=== PATIENT | male | born 1955 | race Caucasian/White ===

== ENCOUNTER 2020-11-16 17:17 | Inpatient (IN) | payer OTHER ==
[2020-11-16 21:12] LABS: BASO % 0.3 % (0-2.0); EOS % 0.4 % (0-4.5); HEMOGLOBIN 14.1 GM/dL (11.7-16.9); LYMPH % 12.8 % (8-40); MCH 29.2 pg (25.7-33.7); MCHC 33.6 g/dl (32.0-35.9); MEAN CELL VOLUME 86.9 fl (80-96); MEAN PLT VOLUME 8.1 fl (7.5-11.1); MONO % 6.8 % (3.8-10.2); NEUT % 79.7 % (42.8-82.8); PLATELET COUNT 282 K/MM3 (134-434); RBC 4.84 M/mm3 (4.00-5.60); RDW 14.8 % (11.9-15.9); WHITE BLOOD COUNT 12.2 K/mm3 (4.0-10.0)
[2020-11-16 21:31] LABS: POTASSIUM 4.2 mmol/L (3.5-5.1)
[2020-11-16 21:33] LABS: ALBUMIN 4.1 g/dl (3.4-5.0); BLOOD UREA NITROGEN 25.3 mg/dL (7-18); CALCIUM 9.4 mg/dL (8.5-10.1)
[2020-11-16 21:37] LABS: CREATININE 1.4 mg/dL (0.55-1.3)
[2020-11-16 21:38] LABS: BILIRUBIN,TOTAL 0.8 mg/dL (0.2-1); TOT PROT 7.8 g/dl (6.4-8.2)
[2020-11-16] MEDS ORDERED: SODIUM CHLORIDE 500 ML IV STA (22:55)
[2020-11-17] MEDS ORDERED: ACETAMINOPHEN 325 MG TABLET (FP) PO PRN (03:21)
[2020-11-17 07:17] LABS: HEMATOCRIT 38.1 % (35.4-49); MCH 29.7 pg (25.7-33.7); MCHC 34.1 g/dl (32.0-35.9); MEAN CELL VOLUME 86.9 fl (80-96); MEAN PLT VOLUME 7.9 fl (7.5-11.1); PLATELET COUNT 240 K/MM3 (134-434); RBC 4.38 M/mm3 (4.00-5.60); RDW 14.7 % (11.9-15.9); WHITE BLOOD COUNT 9.1 K/mm3 (4.0-10.0)
[2020-11-17 07:42] LABS: POTASSIUM 4.1 mmol/L (3.5-5.1)
[2020-11-17] MEDS ORDERED: HEPARIN NA (PORCINE) 5,000 UNITS/ML 1ML VIAL ONE ×2 (07:42→12:56)
[2020-11-17 07:46] LABS: CALCIUM 8.3 mg/dL (8.5-10.1)
[2020-11-17 07:47] LABS: ALBUMIN 3.5 g/dl (3.4-5.0); BLOOD UREA NITROGEN 28.5 mg/dL (7-18)
[2020-11-17 07:50] LABS: CREATININE 1.3 mg/dL (0.55-1.3); PHOSPHOROUS 4.2 mg/dL (2.5-4.9)
[2020-11-17] MEDS: HEPARIN NA (PORCINE) 5,000 UNITS/ML 1ML VIAL SQ SCH ×3 (07:50→21:27)
[2020-11-17 07:52] LABS: BILIRUBIN,TOTAL 0.7 mg/dL (0.2-1); TOT PROT 6.7 g/dl (6.4-8.2)
[2020-11-17 08:06] LABS: EPI CELLS 10 /uL (0-25.1); HYALINE CASTS 6 /uL (0-3.1); URINE APPEARANCE CLOUDY; URINE BACTERIA 12 /uL (0-1359); URINE BILIRUBIN NEGATIVE (NEGATIVE); URINE COLOR YELLOW; URINE GLUCOSE (UA) NEGATIVE (NEGATIVE); URINE KETONE TRACE (NEGATIVE); URINE LEUK ESTERASE NEGATIVE (NEGATIVE); URINE NITRITE NEGATIVE (NEGATIVE); URINE PROTEIN 1+ (NEGATIVE); URINE RBC 12 /uL (0-23.9); URINE UROBILINOGEN 0.2 mg/dL (0.2-1.0); URINE WBC 9 /uL (0-25.8)
[2020-11-17] MEDS: DOCUSATE SODIUM 100 MG CAPSULE (FP) PO SCH (14:27)
[2020-11-17] MEDS: POLYETHYLENE GLYCOL 3350 119 GM BTL PO SCH (14:27)
[2020-11-17] MEDS: SENNOSIDES 8.6MG TABLET (FP) PO SCH (21:27)
[2020-11-18] MEDS: HEPARIN NA (PORCINE) 5,000 UNITS/ML 1ML VIAL SQ SCH ×3 (05:57→21:43)
[2020-11-18] MEDS: DOCUSATE SODIUM 100 MG CAPSULE (FP) PO SCH (09:40)
[2020-11-18] MEDS: POLYETHYLENE GLYCOL 3350 119 GM BTL PO SCH (09:40)
[2020-11-18] MEDS: amLODIPine BESYLATE 5 MG TABLET (FP) PO SCH (15:20)
[2020-11-18] MEDS: SENNOSIDES 8.6MG TABLET (FP) PO SCH (21:43)
[2020-11-19] MEDS: HEPARIN NA (PORCINE) 5,000 UNITS/ML 1ML VIAL SQ SCH ×3 (06:02→21:22)
[2020-11-19] MEDS: POLYETHYLENE GLYCOL 3350 119 GM BTL PO SCH (09:31)
[2020-11-19] MEDS: TAMSULOSIN HCL 0.4 MG CAP PO SCH (09:33)
[2020-11-19] MEDS: amLODIPine BESYLATE 5 MG TABLET (FP) PO SCH (09:33)
[2020-11-19] MEDS: DOCUSATE SODIUM 100 MG CAPSULE (FP) PO SCH (09:33)
[2020-11-19] MEDS: FUROSEMIDE 20 MG TABLET (FP) PO SCH (15:48)
[2020-11-19] MEDS: SENNOSIDES 8.6MG TABLET (FP) PO SCH (21:22)
[2020-11-20] MEDS: HEPARIN NA (PORCINE) 5,000 UNITS/ML 1ML VIAL SQ SCH ×3 (06:37→21:57)
[2020-11-20] MEDS: amLODIPine BESYLATE 10 MG TABLET (FP) PO SCH (09:14)
[2020-11-20] MEDS: FUROSEMIDE 20 MG TABLET (FP) PO SCH (09:14)
[2020-11-20] MEDS: TAMSULOSIN HCL 0.4 MG CAP PO SCH (09:15)
[2020-11-20] MEDS: DOCUSATE SODIUM 100 MG CAPSULE (FP) PO SCH (09:15)
[2020-11-20 09:19] LABS: HEMOGLOBIN 13.1 GM/dL (11.7-16.9); MCH 29.4 pg (25.7-33.7); MCHC 33.6 g/dl (32.0-35.9); MEAN CELL VOLUME 87.6 fl (80-96); MEAN PLT VOLUME 7.9 fl (7.5-11.1); PLATELET COUNT 196 K/MM3 (134-434); RBC 4.45 M/mm3 (4.00-5.60); RDW 14.7 % (11.9-15.9); WHITE BLOOD COUNT 7.8 K/mm3 (4.0-10.0)
[2020-11-20 09:45] LABS: POTASSIUM 4.1 mmol/L (3.5-5.1)
[2020-11-20] MEDS ORDERED: amLODIPine BESYLATE 10 MG TABLET (FP) PO SCH (10:00)
[2020-11-20 10:02] LABS: CALCIUM 8.5 mg/dL (8.5-10.1)
[2020-11-20 10:03] LABS: BLOOD UREA NITROGEN 19.1 mg/dL (7-18)
[2020-11-20 10:06] LABS: CREATININE 1.3 mg/dL (0.55-1.3)
[2020-11-20] MEDS: POLYETHYLENE GLYCOL 3350 119 GM BTL PO SCH (10:06)
[2020-11-20] MEDS ORDERED: cefTRIAXone SODIUM 1 GM VIAL ONE (14:56)
[2020-11-20] MEDS ORDERED: DEXTROSE 5%-WATER - 50 ML IVPB ONE (14:56)
[2020-11-20] MEDS: CEFTRIAXONE 1 GM in DEXTROSE 5%-WATER - 50 ML IVPB SCH (15:30)
[2020-11-20] MEDS: SENNOSIDES 8.6MG TABLET (FP) PO SCH (21:57)
[2020-11-21] MEDS: HEPARIN NA (PORCINE) 5,000 UNITS/ML 1ML VIAL SQ SCH ×3 (06:42→21:56)
[2020-11-21] MEDS ORDERED: cefTRIAXone SODIUM 1 GM VIAL ONE (09:05)
[2020-11-21] MEDS ORDERED: DEXTROSE 5%-WATER - 50 ML IVPB ONE (09:05)
[2020-11-21] MEDS: DOCUSATE SODIUM 100 MG CAPSULE (FP) PO SCH (09:07)
[2020-11-21] MEDS: amLODIPine BESYLATE 10 MG TABLET (FP) PO SCH (09:07)
[2020-11-21] MEDS: TAMSULOSIN HCL 0.4 MG CAP PO SCH (09:07)
[2020-11-21] MEDS: FUROSEMIDE 20 MG TABLET (FP) PO SCH (09:07)
[2020-11-21] MEDS: CEFTRIAXONE 1 GM in DEXTROSE 5%-WATER - 50 ML IVPB SCH (09:07)
[2020-11-21] MEDS: POLYETHYLENE GLYCOL 3350 119 GM BTL PO SCH (09:07)
[2020-11-21 09:13] LABS: BASO % 0.8 % (0-2.0); EOS % 4.9 % (0-4.5); HEMATOCRIT 40.5 % (35.4-49); HEMOGLOBIN 13.9 GM/dL (11.7-16.9); MCH 29.6 pg (25.7-33.7); MCHC 34.2 g/dl (32.0-35.9); MEAN CELL VOLUME 86.5 fl (80-96); MEAN PLT VOLUME 7.9 fl (7.5-11.1); MONO % 6.1 % (3.8-10.2); NEUT % 70.2 % (42.8-82.8); PLATELET COUNT 212 K/MM3 (134-434); RBC 4.68 M/mm3 (4.00-5.60); RDW 14.6 % (11.9-15.9); WHITE BLOOD COUNT 7.8 K/mm3 (4.0-10.0)
[2020-11-21 09:29] LABS: POTASSIUM 4.4 mmol/L (3.5-5.1)
[2020-11-21 09:56] LABS: BLOOD UREA NITROGEN 19.3 mg/dL (7-18); CALCIUM 8.9 mg/dL (8.5-10.1); PHOSPHOROUS 3.5 mg/dL (2.5-4.9)
[2020-11-21 09:57] LABS: CREATININE 1.2 mg/dL (0.55-1.3); MAGNESIUM 2.2 mg/dL (1.8-2.4)
[2020-11-21] MEDS: SENNOSIDES 8.6MG TABLET (FP) PO SCH (21:55)
[2020-11-22] MEDS: HEPARIN NA (PORCINE) 5,000 UNITS/ML 1ML VIAL SQ SCH ×4 (06:20→21:39)
[2020-11-22] MEDS ORDERED: DEXTROSE 5%-WATER - 50 ML IVPB ONE (08:58)
[2020-11-22] MEDS ORDERED: cefTRIAXone SODIUM 1 GM VIAL ONE (08:58)
[2020-11-22] MEDS: FUROSEMIDE 20 MG TABLET (FP) PO SCH (09:05)
[2020-11-22] MEDS: CEFTRIAXONE 1 GM in DEXTROSE 5%-WATER - 50 ML IVPB SCH (09:05)
[2020-11-22] MEDS: amLODIPine BESYLATE 10 MG TABLET (FP) PO SCH (09:05)
[2020-11-22] MEDS: TAMSULOSIN HCL 0.4 MG CAP PO SCH (09:05)
[2020-11-22] MEDS: DOCUSATE SODIUM 100 MG CAPSULE (FP) PO SCH (09:05)
[2020-11-22] MEDS: POLYETHYLENE GLYCOL 3350 119 GM BTL PO SCH (09:05)
[2020-11-22 09:52] LABS: CALCIUM 9.2 mg/dL (8.5-10.1); POTASSIUM 4.5 mmol/L (3.5-5.1)
[2020-11-22 09:54] LABS: BLOOD UREA NITROGEN 19.4 mg/dL (7-18)
[2020-11-22 09:57] LABS: CREATININE 1.3 mg/dL (0.55-1.3); PHOSPHOROUS 3.2 mg/dL (2.5-4.9)
[2020-11-22 10:02] LABS: MAGNESIUM 2.2 mg/dL (1.8-2.4)
[2020-11-22 10:54] LABS: HEMOGLOBIN 13.9 GM/dL (11.7-16.9); MCH 29.7 pg (25.7-33.7); MCHC 33.9 g/dl (32.0-35.9); MEAN CELL VOLUME 87.5 fl (80-96); MEAN PLT VOLUME 8.6 fl (7.5-11.1); PLATELET COUNT 222 K/MM3 (134-434); RBC 4.68 M/mm3 (4.00-5.60); RDW 14.6 % (11.9-15.9); WHITE BLOOD COUNT 7.6 K/mm3 (4.0-10.0)
[2020-11-22] MEDS: SENNOSIDES 8.6MG TABLET (FP) PO SCH (21:39)
[2020-11-23] MEDS: HEPARIN NA (PORCINE) 5,000 UNITS/ML 1ML VIAL SQ SCH ×3 (05:32→22:56)
[2020-11-23 09:33] LABS: HEMATOCRIT 40.1 % (35.4-49); HEMOGLOBIN 13.5 GM/dL (11.7-16.9); MCH 29.4 pg (25.7-33.7); MCHC 33.7 g/dl (32.0-35.9); MEAN CELL VOLUME 87.2 fl (80-96); MEAN PLT VOLUME 8.1 fl (7.5-11.1); PLATELET COUNT 209 K/MM3 (134-434); RDW 14.7 % (11.9-15.9); WHITE BLOOD COUNT 7.5 K/mm3 (4.0-10.0)
[2020-11-23] MEDS: DOCUSATE SODIUM 100 MG CAPSULE (FP) PO SCH (09:37)
[2020-11-23] MEDS: FUROSEMIDE 20 MG TABLET (FP) PO SCH (09:37)
[2020-11-23] MEDS: CEPHALEXIN MONOHYDRATE 500 MG CAPSULE (UD) PO SCH ×2 (09:37→22:55)
[2020-11-23] MEDS: TAMSULOSIN HCL 0.4 MG CAP PO SCH (09:37)
[2020-11-23] MEDS: amLODIPine BESYLATE 10 MG TABLET (FP) PO SCH (09:37)
[2020-11-23] MEDS: POLYETHYLENE GLYCOL 3350 119 GM BTL PO SCH (09:38)
[2020-11-23 09:52] LABS: CALCIUM 8.7 mg/dL (8.5-10.1); MAGNESIUM 2.2 mg/dL (1.8-2.4)
[2020-11-23 09:54] LABS: CREATININE 1.3 mg/dL (0.55-1.3)
[2020-11-23 09:57] LABS: BLOOD UREA NITROGEN 23.6 mg/dL (7-18)
[2020-11-23 10:00] LABS: PHOSPHOROUS 3.1 mg/dL (2.5-4.9)
[2020-11-23 13:18] VITALS: BMI 29.5
[2020-11-23] MEDS: SENNOSIDES 8.6MG TABLET (FP) PO SCH (22:56)
[2020-11-24] MEDS: HEPARIN NA (PORCINE) 5,000 UNITS/ML 1ML VIAL SQ SCH ×3 (06:21→22:52)
[2020-11-24 08:46] LABS: HEMATOCRIT 38.8 % (35.4-49); HEMOGLOBIN 13.1 GM/dL (11.7-16.9); MCH 29.5 pg (25.7-33.7); MCHC 33.8 g/dl (32.0-35.9); MEAN CELL VOLUME 87.1 fl (80-96); MEAN PLT VOLUME 8.2 fl (7.5-11.1); PLATELET COUNT 183 K/MM3 (134-434); RBC 4.45 M/mm3 (4.00-5.60); RDW 14.5 % (11.9-15.9); WHITE BLOOD COUNT 8.1 K/mm3 (4.0-10.0)
[2020-11-24 09:05] LABS: POTASSIUM 4.2 mmol/L (3.5-5.1)
[2020-11-24 09:26] LABS: CALCIUM 8.6 mg/dL (8.5-10.1)
[2020-11-24 09:28] LABS: BLOOD UREA NITROGEN 22.9 mg/dL (7-18); MAGNESIUM 2.1 mg/dL (1.8-2.4)
[2020-11-24 09:30] LABS: CREATININE 1.2 mg/dL (0.55-1.3); PHOSPHOROUS 3.5 mg/dL (2.5-4.9)
[2020-11-24] MEDS ORDERED: PT OWN MED DRAWER 7, Y5N ONE (09:37)
[2020-11-24] MEDS: TAMSULOSIN HCL 0.4 MG CAP PO SCH (09:39)
[2020-11-24] MEDS: DOCUSATE SODIUM 100 MG CAPSULE (FP) PO SCH (09:40)
[2020-11-24] MEDS: amLODIPine BESYLATE 10 MG TABLET (FP) PO SCH (09:41)
[2020-11-24] MEDS: CEPHALEXIN MONOHYDRATE 500 MG CAPSULE (UD) PO SCH ×2 (09:41→22:52)
[2020-11-24] MEDS: MULTIVIT-MINERALS ORAL LIQUID PO SCH (09:41)
[2020-11-24] MEDS: FUROSEMIDE 20 MG TABLET (FP) PO SCH (09:41)
[2020-11-24] MEDS: POLYETHYLENE GLYCOL 3350 119 GM BTL PO SCH (09:43)
[2020-11-24] MEDS: SENNOSIDES 8.6MG TABLET (FP) PO SCH (22:52)
[2020-11-25] MEDS: HEPARIN NA (PORCINE) 5,000 UNITS/ML 1ML VIAL SQ SCH ×3 (06:17→22:50)
[2020-11-25] MEDS: POLYETHYLENE GLYCOL 3350 119 GM BTL PO SCH (10:25)
[2020-11-25] MEDS: amLODIPine BESYLATE 10 MG TABLET (FP) PO SCH (10:27)
[2020-11-25] MEDS: DOCUSATE SODIUM 100 MG CAPSULE (FP) PO SCH (10:28)
[2020-11-25] MEDS: FUROSEMIDE 20 MG TABLET (FP) PO SCH (10:28)
[2020-11-25] MEDS: TAMSULOSIN HCL 0.4 MG CAP PO SCH (10:28)
[2020-11-25] MEDS ORDERED: INSULIN (NOVOLOG) ASPART 100 UNITS/ML 10ML VIAL ONE (10:29)
[2020-11-25] MEDS: MULTIVIT-MINERALS ORAL LIQUID PO SCH (10:30)
[2020-11-25] MEDS ORDERED: PT OWN MED DRAWER 7, Y5N ONE (10:30)
[2020-11-25] MEDS: SENNOSIDES 8.6MG TABLET (FP) PO SCH (22:50)
[2020-11-26] MEDS: HEPARIN NA (PORCINE) 5,000 UNITS/ML 1ML VIAL SQ SCH ×3 (05:40→21:58)
[2020-11-26] MEDS: amLODIPine BESYLATE 10 MG TABLET (FP) PO SCH (10:04)
[2020-11-26] MEDS: MULTIVIT-MINERALS ORAL LIQUID PO SCH (10:04)
[2020-11-26] MEDS: DOCUSATE SODIUM 100 MG CAPSULE (FP) PO SCH (10:04)
[2020-11-26] MEDS: TAMSULOSIN HCL 0.4 MG CAP PO SCH (10:04)
[2020-11-26] MEDS: FUROSEMIDE 20 MG TABLET (FP) PO SCH (10:04)
[2020-11-26] MEDS: POLYETHYLENE GLYCOL 3350 119 GM BTL PO SCH (10:07)
[2020-11-26] MEDS: SENNOSIDES 8.6MG TABLET (FP) PO SCH (21:58)
[2020-11-27] MEDS: HEPARIN NA (PORCINE) 5,000 UNITS/ML 1ML VIAL SQ SCH ×3 (06:13→21:53)
[2020-11-27] MEDS: TAMSULOSIN HCL 0.4 MG CAP PO SCH (07:45)
[2020-11-27] MEDS ORDERED: PT OWN MED DRAWER 7, Y5N ONE (10:07)
[2020-11-27] MEDS: MULTIVIT-MINERALS ORAL LIQUID PO SCH (10:14)
[2020-11-27] MEDS: amLODIPine BESYLATE 10 MG TABLET (FP) PO SCH (10:14)
[2020-11-27] MEDS: FUROSEMIDE 20 MG TABLET (FP) PO SCH (10:14)
[2020-11-27] MEDS: DOCUSATE SODIUM 100 MG CAPSULE (FP) PO SCH (10:14)
[2020-11-27] MEDS: POLYETHYLENE GLYCOL 3350 119 GM BTL PO SCH (10:15)
[2020-11-27 21:22] VITALS: TEMP 98.7
[2020-11-27] MEDS: SENNOSIDES 8.6MG TABLET (FP) PO SCH (21:54)
[2020-11-28] MEDS: HEPARIN NA (PORCINE) 5,000 UNITS/ML 1ML VIAL SQ SCH (06:19)
[2020-11-28] MEDS: TAMSULOSIN HCL 0.4 MG CAP PO SCH (08:44)
[2020-11-28] MEDS ORDERED: PT OWN MED DRAWER 7, Y5N ONE (09:22)
[2020-11-28] MEDS: DOCUSATE SODIUM 100 MG CAPSULE (FP) PO SCH (10:02)
[2020-11-28] MEDS: FUROSEMIDE 20 MG TABLET (FP) PO SCH (10:02)
[2020-11-28] MEDS: MULTIVIT-MINERALS ORAL LIQUID PO SCH (10:02)
[2020-11-28] MEDS: POLYETHYLENE GLYCOL 3350 119 GM BTL PO SCH (10:03)
[2020-11-28] MEDS: amLODIPine BESYLATE 10 MG TABLET (FP) PO SCH (10:03)
[2020-11-28 12:39] VITALS: BP 147/96; PULSE 87
== END 2020-11-28 13:02 | disposition home or self-care (01) | DRG 556 ==
LOC: JER 17:17 → JERBED 20:25 → J6S 11-17 15:26
PROVIDERS: ADMIT Hospitalist; ATTEND Student in an Organized Health Care Education/Training Program
DX: R26.2 Difficulty in walking, not elsewhere classified (principal); N17.9 Acute kidney failure, unspecified; L03.113 Cellulitis of right upper limb; N40.0 Benign prostatic hyperplasia without lower urinary tract symptoms; R26.81 Unsteadiness on feet; I12.9 Hypertensive chronic kidney disease with stage 1 through stage 4 chronic kidney disease, or unspecified chronic kidney disease; N18.9 Chronic kidney disease, unspecified; D72.829 Elevated white blood cell count, unspecified; I80.8 Phlebitis and thrombophlebitis of other sites; I87.2 Venous insufficiency (chronic) (peripheral); E78.5 Hyperlipidemia, unspecified
CPT/HCPCS: 36415; 70450-TC; 71045-TC-FY; 73502-TC-LT-FY; 73552-TC-LT-FY; 73560-TC-LT-FY; 80048; 80053; 81003; 82565; 83735; 84100; 84156; 84300; 85025; 85027; 85651; 86140; 87040; 93005; 93010; 93971; 93971-TC; 97116-GP; 97162-GP; 99285-25; C9803; J1644; U0003

== ENCOUNTER 2024-09-22 12:35 | Inpatient (IN) | payer OTHER ==
[2024-09-22 13:25] VITALS: BMI 36.9
[2024-09-22] MEDS ORDERED: VANCOMYCIN 1 GRAM (PRE-DOCKED) 1,000 MG/250 ML BAG IVPB ONE (14:46)
[2024-09-22] MEDS ORDERED: ACETAMINOPHEN INJECTION 100 ML ONE (14:46)
[2024-09-22 15:19] LABS: BASO % 0.5 % (0-2.0); EOS % 2.2 % (0-4.5); HEMATOCRIT 44.4 % (35.4-49); HEMOGLOBIN 15.1 GM/dL (11.7-16.9); LYMPH % 19.4 % (8-40); MCH 29.8 pg (25.7-33.7); MCHC 34.1 g/dl (32.0-35.9); MEAN CELL VOLUME 87.4 fl (80-96); MEAN PLT VOLUME 7.5 fl (7.5-11.1); MONO % 7.4 % (3.8-10.2); NEUT % 70.5 % (42.8-82.8); PLATELET COUNT 175 10^3/uL (134-434); RBC 5.08 M/mm3 (4.00-5.60); RDW 14.3 % (11.9-15.9); WHITE BLOOD COUNT 8.7 K/mm3 (4.0-10.0)
[2024-09-22 15:46] LABS: POTASSIUM 4.2 mmol/L (3.5-5.1)
[2024-09-22 15:48] LABS: ALBUMIN 3.7 g/dl (3.4-5.0); BLOOD UREA NITROGEN 16.4 mg/dL (7-18)
[2024-09-22 15:52] LABS: CREATININE 1.2 mg/dL (0.55-1.3)
[2024-09-22 15:53] LABS: BILIRUBIN,TOTAL 0.9 mg/dL (0.2-1); TOT PROT 7.3 g/dl (6.4-8.2)
[2024-09-22 17:02] LABS: HIV INTERPRETATION NEGATIVE (NEGATIVE)
[2024-09-22] MEDS: VANCOMYCIN 1,000 MG in DEXTROSE 5%-WATER - 250 ML IVPB ONE ×2 (18:11→19:17)
[2024-09-22] MEDS: ACETAMINOPHEN 1000 MG/100 ML BAG IVPB ONE (18:11)
[2024-09-22] MEDS ORDERED: ACETAMINOPHEN 500 MG TABLET (FP) PO PRN (18:30)
[2024-09-22] MEDS: HEPARIN NA (PORCINE) 5,000 UNITS/ML 1ML VIAL SQ SCH (22:23)
[2024-09-23] MEDS: VANCOMYCIN/WATER 1250 MG 1,250 MG/250 ML BAG IVPB SCH ×2 (06:30→20:01)
[2024-09-23] MEDS: amLODIPine BESYLATE 10 MG TABLET (FP) PO SCH (09:28)
[2024-09-23] MEDS: FUROSEMIDE 20 MG TABLET (FP) PO SCH (09:28)
[2024-09-23] MEDS: TAMSULOSIN HCL 0.4 MG CAP PO SCH (09:28)
[2024-09-23] MEDS: LOSARTAN POTASSIUM 50 MG TABLET PO SCH (09:28)
[2024-09-23 10:06] LABS: BASO % 0.5 % (0-2.0); EOS % 2.4 % (0-4.5); HEMATOCRIT 43.6 % (35.4-49); HEMOGLOBIN 15.2 GM/dL (11.7-16.9); LYMPH % 15.5 % (8-40); MCH 30.4 pg (25.7-33.7); MCHC 34.9 g/dl (32.0-35.9); MEAN CELL VOLUME 87.3 fl (80-96); MEAN PLT VOLUME 8.1 fl (7.5-11.1); MONO % 5.5 % (3.8-10.2); NEUT % 76.1 % (42.8-82.8); PLATELET COUNT 183 10^3/uL (134-434); RBC 4.99 M/mm3 (4.00-5.60); RDW 14.5 % (11.9-15.9); WHITE BLOOD COUNT 8.5 K/mm3 (4.0-10.0)
[2024-09-23 10:28] LABS: POTASSIUM 4.2 mmol/L (3.5-5.1)
[2024-09-23 10:38] LABS: BLOOD UREA NITROGEN 17.7 mg/dL (7-18); CALCIUM 8.6 mg/dL (8.5-10.1)
[2024-09-23 10:42] LABS: CREATININE 1.3 mg/dL (0.55-1.3)
[2024-09-23] MEDS: CEFAZOLIN 2 GM/D5W 2 GM/50 ML ML IVPB SCH (11:35)
[2024-09-23] MEDS: CEFTRIAXONE 1 GM in DEXTROSE 5%-WATER - 50 ML IVPB SCH (20:02)
[2024-09-24] MEDS: CEFTRIAXONE 1 G/50 ML PREMIX 50 ML IVPB SCH (09:17)
[2024-09-24 10:11] LABS: HEMATOCRIT 43.6 % (35.4-49); HEMOGLOBIN 14.6 GM/dL (11.7-16.9); MCH 29.8 pg (25.7-33.7); MCHC 33.5 g/dl (32.0-35.9); MEAN CELL VOLUME 88.9 fl (80-96); MEAN PLT VOLUME 8.1 fl (7.5-11.1); PLATELET COUNT 172 10^3/uL (134-434); WHITE BLOOD COUNT 7.2 K/mm3 (4.0-10.0)
[2024-09-24 10:27] LABS: POTASSIUM 4.4 mmol/L (3.5-5.1)
[2024-09-24 10:29] LABS: BLOOD UREA NITROGEN 14.8 mg/dL (7-18); CALCIUM 8.7 mg/dL (8.5-10.1)
[2024-09-24 10:33] LABS: CREATININE 1.3 mg/dL (0.55-1.3)
[2024-09-24] MEDS: CEFAZOLIN 1 GM in DEXTROSE 5%-WATER - 50 ML IVPB SCH (17:42)
[2024-09-25 10:13] LABS: HEMATOCRIT 42.3 % (35.4-49); HEMOGLOBIN 14.5 GM/dL (11.7-16.9); MCH 29.9 pg (25.7-33.7); MCHC 34.2 g/dl (32.0-35.9); MEAN CELL VOLUME 87.4 fl (80-96); MEAN PLT VOLUME 7.6 fl (7.5-11.1); PLATELET COUNT 176 10^3/uL (134-434); RBC 4.84 M/mm3 (4.00-5.60); RDW 13.8 % (11.9-15.9); WHITE BLOOD COUNT 7.1 K/mm3 (4.0-10.0)
[2024-09-25 10:42] LABS: CALCIUM 8.9 mg/dL (8.5-10.1)
[2024-09-25 10:46] LABS: CREATININE 1.3 mg/dL (0.55-1.3)
[2024-09-25] MEDS: FUROSEMIDE 20 MG TABLET (FP) PO ONE (12:38)
[2024-09-26 10:09] LABS: HEMATOCRIT 44.3 % (35.4-49); MCH 29.7 pg (25.7-33.7); MCHC 33.9 g/dl (32.0-35.9); MEAN CELL VOLUME 87.8 fl (80-96); MEAN PLT VOLUME 7.7 fl (7.5-11.1); PLATELET COUNT 192 10^3/uL (134-434); RBC 5.04 M/mm3 (4.00-5.60); RDW 13.9 % (11.9-15.9); WHITE BLOOD COUNT 7.4 K/mm3 (4.0-10.0)
[2024-09-26 11:02] LABS: POTASSIUM 4.2 mmol/L (3.5-5.1)
[2024-09-26 11:05] LABS: BLOOD UREA NITROGEN 16.8 mg/dL (7-18); CALCIUM 8.7 mg/dL (8.5-10.1)
[2024-09-26 11:07] LABS: ALBUMIN 3.2 g/dl (3.4-5.0)
[2024-09-26 11:10] LABS: CREATININE 1.4 mg/dL (0.55-1.3); TOT PROT 6.3 g/dl (6.4-8.2)
[2024-09-26 11:14] LABS: BILIRUBIN,TOTAL 0.3 mg/dL (0.2-1)
[2024-09-27] MEDS: FUROSEMIDE 20 MG TABLET (FP) PO SCH (06:21)
[2024-09-27 08:58] VITALS: RESP 18
[2024-09-27 12:03] LABS: HEMATOCRIT 43.2 % (35.4-49); HEMOGLOBIN 15.2 GM/dL (11.7-16.9); MCH 30.3 pg (25.7-33.7); MCHC 35.2 g/dl (32.0-35.9); MEAN CELL VOLUME 85.9 fl (80-96); MEAN PLT VOLUME 7.3 fl (7.5-11.1); PLATELET COUNT 203 10^3/uL (134-434); RBC 5.02 M/mm3 (4.00-5.60); RDW 13.9 % (11.9-15.9)
[2024-09-27 12:36] LABS: ALBUMIN 3.6 g/dl (3.4-5.0); CALCIUM 9.3 mg/dL (8.5-10.1)
[2024-09-27 12:40] LABS: CREATININE 1.3 mg/dL (0.55-1.3)
[2024-09-27 12:41] LABS: BILIRUBIN,TOTAL 0.3 mg/dL (0.2-1)
[2024-09-27 19:46] LABS: BASO % 0.4 % (0-2.0); EOS % 2.9 % (0-4.5); HEMATOCRIT 48.8 % (35.4-49); HEMOGLOBIN 16.5 GM/dL (11.7-16.9); LYMPH % 20.5 % (8-40); MCH 29.6 pg (25.7-33.7); MCHC 33.8 g/dl (32.0-35.9); MEAN CELL VOLUME 87.6 fl (80-96); MEAN PLT VOLUME 7.4 fl (7.5-11.1); MONO % 7.9 % (3.8-10.2); NEUT % 68.3 % (42.8-82.8); PLATELET COUNT 211 10^3/uL (134-434); RBC 5.57 M/mm3 (4.00-5.60); WHITE BLOOD COUNT 9.7 K/mm3 (4.0-10.0)
[2024-09-28 10:46] LABS: POTASSIUM 4.4 mmol/L (3.5-5.1)
[2024-09-28 10:48] LABS: ALBUMIN 3.4 g/dl (3.4-5.0); CALCIUM 8.7 mg/dL (8.5-10.1)
[2024-09-28 10:49] LABS: BLOOD UREA NITROGEN 22.6 mg/dL (7-18); MAGNESIUM 2.1 mg/dL (1.8-2.4)
[2024-09-28 10:52] LABS: CREATININE 1.3 mg/dL (0.55-1.3); PHOSPHOROUS 3.2 mg/dL (2.5-4.9)
[2024-09-28 10:53] LABS: BILIRUBIN,TOTAL 0.4 mg/dL (0.2-1); TOT PROT 6.5 g/dl (6.4-8.2)
[2024-09-28 17:53] VITALS: BP 157/96; PULSE 75; TEMP 98.8
== END 2024-09-28 18:56 | disposition home or self-care (01) | DRG 603 ==
LOC: JER 12:35 → JERBED 15:09 → J6S 20:23
PROVIDERS: ADMIT Internal Medicine; ATTEND Internal Medicine
DX: L03.115 Cellulitis of right lower limb (principal); E87.3 Alkalosis; I10 Essential (primary) hypertension; N40.0 Benign prostatic hyperplasia without lower urinary tract symptoms; I89.0 Lymphedema, not elsewhere classified; B35.1 Tinea unguium; I87.2 Venous insufficiency (chronic) (peripheral); D64.9 Anemia, unspecified
CPT/HCPCS: 0241U-QW; 36415; 80048; 80053; 83036; 83735; 84100; 85025; 85027; 86803; 87040; 87070; 87077; 87186; 87205; 87389; 93005; 93010; 93306-TC; 93922; 93925-TC; 93970-TC; 99285-25; J0131; J1644

== ENCOUNTER 2024-11-27 10:04 | Inpatient (IN) | payer OTHER ==
[2024-11-27 10:45] VITALS: BMI 23.3
[2024-11-27 11:40] LABS: VENOUS BASE EXCESS 4.3 mmol/L (-2-2); VENOUS O2 SATURATION 52.4 % (70-80); VENOUS PCO2 65.9 mmHg (38-52); VENOUS PH 7.311 (7.310-7.410)
[2024-11-27 11:41] LABS: BASO % 0.4 % (0-2.0); EOS % 1.7 % (0-4.5); HEMATOCRIT 38.4 % (35.4-49); HEMOGLOBIN 12.5 GM/dL (11.7-16.9); MCH 28.7 pg (25.7-33.7); MCHC 32.4 g/dl (32.0-35.9); MEAN CELL VOLUME 88.4 fl (80-96); MONO % 7.6 % (3.8-10.2); NEUT % 83.3 % (42.8-82.8); PLATELET COUNT 209 10^3/uL (134-434); RBC 4.35 M/mm3 (4.00-5.60); RDW 13.8 % (11.9-15.9); WHITE BLOOD COUNT 9.9 K/mm3 (4.0-10.0)
[2024-11-27 11:44] LABS: EPI CELLS 5 /uL (0-25.1); HYALINE CASTS 0 /uL (0-3.1); PH,URINE 5.5 (5.0-8.0); URINE APPEARANCE CLEAR; URINE BACTERIA 2 /uL (0-1359); URINE BILIRUBIN NEGATIVE (NEGATIVE); URINE COLOR YELLOW; URINE GLUCOSE (UA) NEGATIVE (NEGATIVE); URINE KETONE NEGATIVE (NEGATIVE); URINE LEUK ESTERASE NEGATIVE (NEGATIVE); URINE NITRITE NEGATIVE (NEGATIVE); URINE PROTEIN 1+ (NEGATIVE); URINE RBC 7 /uL (0-23.9); URINE UROBILINOGEN 0.2 mg/dL (0.2-1.0); URINE WBC 2 /uL (0-25.8)
[2024-11-27 11:50] LABS: INR 1.13 (0.83-1.09); PROTHROMBIN TIME (PATIENT) 12.7 SEC (9.7-13.0)
[2024-11-27 11:53] LABS: ACTIVATED PTT 30.9 SECONDS (25.2-36.5)
[2024-11-27] MEDS ORDERED: CEFTRIAXONE 1 G/50 ML PREMIX 50 ML IVPB ONE (11:59)
[2024-11-27] MEDS: CEFTRIAXONE 1,000 MG in DEXTROSE 5%-WATER - 50 ML IVPB ONE (12:03)
[2024-11-27 12:06] LABS: CHLORIDE 106 mmol/L (98-107); POTASSIUM 4.4 mmol/L (3.5-5.1); SODIUM 140 mmol/L (136-145)
[2024-11-27 12:07] LABS: ALBUMIN 3.1 g/dl (3.4-5.0); ANION GAP 3 mmol/L (4-13); CALCIUM 8.9 mg/dL (8.5-10.1); CO2 32 mmol/L (21-32); GLUCOSE,RANDOM 108 mg/dL (74-106); MAGNESIUM 1.9 mg/dL (1.8-2.4)
[2024-11-27 12:10] LABS: CREATININE 1.1 mg/dL (0.55-1.3); SGOT/AST 30 U/L (15-37); SGPT/ALT 39 U/L (13-61)
[2024-11-27 12:12] LABS: BILIRUBIN,TOTAL 0.4 mg/dL (0.2-1); TOT PROT 6.4 g/dl (6.4-8.2)
[2024-11-27 12:13] LABS: ALK PHOS 105 U/L (45-117)
[2024-11-27 12:31] LABS: URINE BENZODIAZEPINES NEGATIVE (NEGATIVE)
[2024-11-27 12:32] LABS: PHENCYCLIDINE,URINE NEGATIVE (NEGATIVE)
[2024-11-27 12:36] LABS: COCAINE, UR NEGATIVE (NEGATIVE); METHADONE, UR NEGATIVE (NEGATIVE); OPIATES, URI NEGATIVE (NEGATIVE); URINE AMPHETAMINES NEGATIVE (NEGATIVE); URINE BARBITURATES NEGATIVE (NEGATIVE)
[2024-11-27 13:00] LABS: HIV INTERPRETATION NEGATIVE (NEGATIVE)
[2024-11-27] MEDS ORDERED: AZITHROMYCIN IVPB 500 MG/250 ML BAG IVPB ONE (14:08)
[2024-11-27] MEDS: AZITHROMYCIN IVPB 500 MG/250 ML BAG IVPB ONE (15:01)
[2024-11-27] MEDS: AZITHROMYCIN IVPB 500 MG in DEXTROSE 5%-WATER - 250 ML IVPB ONE (15:01)
[2024-11-27] MEDS ORDERED: LORazepam 2 MG/ML SDV VIAL ONE (15:53)
[2024-11-27] MEDS: LORazepam 2 MG/ML SDV VIAL IVPUSH ONE (16:03)
[2024-11-28 06:47] LABS: POTASSIUM 4.3 mmol/L (3.5-5.1)
[2024-11-28 06:49] LABS: CALCIUM 8.2 mg/dL (8.5-10.1)
[2024-11-28 06:50] LABS: MAGNESIUM 2.1 mg/dL (1.8-2.4)
[2024-11-28 06:54] LABS: PHOSPHOROUS 3.3 mg/dL (2.5-4.9)
[2024-11-28 07:14] LABS: HEMATOCRIT 39.7 % (35.4-49); MCH 29.1 pg (25.7-33.7); MCHC 32.7 g/dl (32.0-35.9); MEAN CELL VOLUME 89.1 fl (80-96); PLATELET COUNT 188 10^3/uL (134-434); RBC 4.46 M/mm3 (4.00-5.60); RDW 13.8 % (11.9-15.9)
[2024-11-28] MEDS: CEFTRIAXONE 1 G/50 ML PREMIX 50 ML IVPB SCH (10:30)
[2024-11-28] MEDS: ENOXAPARIN NA (PORCINE) 40 MG/0.4 ML DISP.SYRIN SQ SCH (10:30)
[2024-11-28] MEDS ORDERED: AZITHROMYCIN IVPB 500 MG/250 ML BAG IVPB ONE (12:34)
[2024-11-28] MEDS ORDERED: amLODIPine BESYLATE 5 MG TABLET (FP) ONE (12:35)
[2024-11-28] MEDS ORDERED: methylPREDNISolone NA SUCC 40 MG/1 ML VIAL ONE (12:35)
[2024-11-28] MEDS ORDERED: LOSARTAN POTASSIUM 50 MG TABLET ONE (12:35)
[2024-11-28] MEDS ORDERED: FUROSEMIDE 40 MG/4 ML INJECTABLE VIAL ONE (12:35)
[2024-11-28] MEDS: methylPREDNISolone NA SUCC 40 MG/1 ML VIAL IVPUSH SCH (12:36)
[2024-11-28] MEDS: amLODIPine BESYLATE 5 MG TABLET (FP) PO SCH (12:36)
[2024-11-28] MEDS: FUROSEMIDE 40 MG/4 ML INJECTABLE VIAL IVPUSH ONE (12:36)
[2024-11-28] MEDS: LOSARTAN POTASSIUM 50 MG TABLET PO SCH (12:36)
[2024-11-28] MEDS: AZITHROMYCIN IVPB 250 MG in DEXTROSE 5%-WATER - 250 ML IVPB SCH (12:45)
[2024-11-29 08:51] LABS: POTASSIUM 4.1 mmol/L (3.5-5.1)
[2024-11-29 08:52] LABS: HEMATOCRIT 36.4 % (35.4-49); HEMOGLOBIN 12.2 GM/dL (11.7-16.9); MCH 29.4 pg (25.7-33.7); MCHC 33.4 g/dl (32.0-35.9); MEAN CELL VOLUME 87.9 fl (80-96); PLATELET COUNT 181 10^3/uL (134-434); RBC 4.14 M/mm3 (4.00-5.60); RDW 14.2 % (11.9-15.9); WHITE BLOOD COUNT 6.4 K/mm3 (4.0-10.0)
[2024-11-29 09:03] LABS: ALBUMIN 2.6 g/dl (3.4-5.0); CALCIUM 8.4 mg/dL (8.5-10.1); MAGNESIUM 2.2 mg/dL (1.8-2.4)
[2024-11-29 09:05] LABS: BLOOD UREA NITROGEN 19.8 mg/dL (7-18)
[2024-11-29 09:07] LABS: PHOSPHOROUS 2.8 mg/dL (2.5-4.9)
[2024-11-29 09:08] LABS: BILIRUBIN,TOTAL 0.4 mg/dL (0.2-1); TOT PROT 5.6 g/dl (6.4-8.2)
[2024-11-29] MEDS: TAMSULOSIN HCL 0.4 MG CAP PO SCH (09:15)
[2024-11-29] MEDS: FUROSEMIDE 40 MG/4 ML INJECTABLE VIAL IVPUSH SCH (09:16)
[2024-11-29] MEDS ORDERED: TAMSULOSIN HCL 0.4 MG CAP PO SCH (14:01)
[2024-11-30 07:12] LABS: HEMOGLOBIN 12.5 GM/dL (11.7-16.9); MCH 29.4 pg (25.7-33.7); MCHC 33.8 g/dl (32.0-35.9); MEAN CELL VOLUME 86.9 fl (80-96); MEAN PLT VOLUME 7.6 fl (7.5-11.1); PLATELET COUNT 192 10^3/uL (134-434); RBC 4.25 M/mm3 (4.00-5.60); WHITE BLOOD COUNT 7.5 K/mm3 (4.0-10.0)
[2024-11-30 07:31] LABS: POTASSIUM 3.6 mmol/L (3.5-5.1)
[2024-11-30 07:35] LABS: CALCIUM 8.3 mg/dL (8.5-10.1)
[2024-11-30 07:36] LABS: BLOOD UREA NITROGEN 23.1 mg/dL (7-18)
[2024-11-30 07:39] LABS: CREATININE 1.1 mg/dL (0.55-1.3)
[2024-11-30 07:44] LABS: N-TERMINAL BNP 1640.7 pg/ml (5-125)
[2024-11-30] MEDS: TAMSULOSIN HCL 0.4 MG CAP PO ONE (10:09)
[2024-11-30] MEDS: FUROSEMIDE 40 MG/4 ML INJECTABLE VIAL IVPUSH ONE (14:17)
[2024-12-01 07:25] LABS: POTASSIUM 3.8 mmol/L (3.5-5.1)
[2024-12-01 07:27] LABS: ALBUMIN 2.8 g/dl (3.4-5.0); BLOOD UREA NITROGEN 24.5 mg/dL (7-18)
[2024-12-01 07:28] LABS: CALCIUM 8.4 mg/dL (8.5-10.1)
[2024-12-01 07:30] LABS: CREATININE 1.1 mg/dL (0.55-1.3)
[2024-12-01 07:32] LABS: BILIRUBIN,TOTAL 0.3 mg/dL (0.2-1); TOT PROT 5.7 g/dl (6.4-8.2)
[2024-12-01] MEDS: TAMSULOSIN HCL 0.4 MG CAP PO SCH (10:14)
[2024-12-02 07:51] LABS: POTASSIUM 3.8 mmol/L (3.5-5.1)
[2024-12-02 07:54] LABS: CALCIUM 8.9 mg/dL (8.5-10.1)
[2024-12-02 07:55] LABS: ALBUMIN 3.2 g/dl (3.4-5.0); BLOOD UREA NITROGEN 30.3 mg/dL (7-18)
[2024-12-02 07:58] LABS: BILIRUBIN,TOTAL 0.5 mg/dL (0.2-1); CREATININE 1.2 mg/dL (0.55-1.3); TOT PROT 6.9 g/dl (6.4-8.2)
[2024-12-02] MEDS: metoPROLOL SUCCINATE 25 MG TAB.SR.24H (FP) PO SCH (11:30)
[2024-12-02] MEDS: FUROSEMIDE 20 MG TABLET (FP) PO ONE (12:08)
[2024-12-03 02:06] VITALS: RESP 18
[2024-12-03 08:08] LABS: POTASSIUM 3.8 mmol/L (3.5-5.1)
[2024-12-03 08:19] LABS: BLOOD UREA NITROGEN 29.7 mg/dL (7-18); CALCIUM 8.6 mg/dL (8.5-10.1)
[2024-12-03 08:21] LABS: ALBUMIN 2.8 g/dl (3.4-5.0)
[2024-12-03 08:25] LABS: CREATININE 1.2 mg/dL (0.55-1.3); TOT PROT 5.8 g/dl (6.4-8.2)
[2024-12-03 08:26] LABS: BILIRUBIN,TOTAL 0.4 mg/dL (0.2-1)
[2024-12-03 11:00] VITALS: BP 138/91; PULSE 82; TEMP 98.5
== END 2024-12-03 14:30 | disposition home or self-care (01) | DRG 193 ==
LOC: JER 10:04 → JERBED 12:21 → OBSVTOIN 11-28 14:55 → J4W 11-29 00:21
PROVIDERS: ADMIT Internal Medicine; ATTEND Internal Medicine
DX: J18.9 Pneumonia, unspecified organism (principal); G93.41 Metabolic encephalopathy; J96.01 Acute respiratory failure with hypoxia; I50.33 Acute on chronic diastolic (congestive) heart failure; E87.3 Alkalosis; I89.0 Lymphedema, not elsewhere classified; N40.1 Benign prostatic hyperplasia with lower urinary tract symptoms; R33.9 Retention of urine, unspecified; N43.3 Hydrocele, unspecified; I11.0 Hypertensive heart disease with heart failure; E78.5 Hyperlipidemia, unspecified; E66.9 Obesity, unspecified; Z68.34 Body mass index [BMI] 34.0-34.9, adult
CPT/HCPCS: 0241U-QW; 36415; 70450-TC; 71045-TC-FY; 80048; 80053; 80307; 81003; 82803; 82962; 83036; 83605; 83735; 83880; 84100; 84484; 85025; 85027; 85610; 85730; 86803; 86850; 86900; 86901; 87070; 87086; 87205; 87389; 87899; 93005; 93010; 94010; 94660; 99291; G0378